=== PATIENT | male | born 1945 | race Caucasian/White ===

== ENCOUNTER → 2016-06-08 | Outpatient (CLI) | payer MEDICARE, MEDICAID ==
[~2016-06-08] MED LIST: AMLO5TAB2 PO; BENZ100C4 PO; CHOL400C PO; CRAN400C PO; FINA5TAB4 PO; FOLI1TAB7 PO; HYDR-3138 PO; HYDR12.53 PO; HYDR25TA6 PO; MECL12.52 PO; METF500T9 PO; OMEP40CA6 PO; QUIN20TA7 PO; QUIN40TA7 PO; SIMV40TA3 PO; SIMV5TAB5 PO; SITA100T PO; SUCR1TAB PO; TAMS0.4C2 PO
== END | disposition home or self-care (01) ==
LOC: CFH 07:53
PROVIDERS: ATTEND Nurse Practitioner Family
DX: G31.9 Degenerative disease of nervous system, unspecified (principal); I99.8 Other disorder of circulatory system; Q30.1 Agenesis and underdevelopment of nose
CPT/HCPCS: 70450

== ENCOUNTER → 2016-06-09 | Outpatient (CLI) | payer MEDICARE, MEDICAID | END | disposition home or self-care (01) | LOC: RAD 07:01 | PROVIDERS: ATTEND Nurse Practitioner Family | DX: N28.1 Cyst of kidney, acquired (principal); K83.8 Other specified diseases of biliary tract | CPT/HCPCS: 76700 ==

== ENCOUNTER 2016-06-14 06:36 | Emergency (ER) | payer MEDICARE, MEDICAID ==
[~2016-06-14] VITALS: Ht 167.6 cm; Wt 75.8 kg
[~2016-06-14 06:36] MED LIST changes: -BENZ100C4 PO; -FINA5TAB4 PO; -HYDR-3138 PO; -HYDR25TA6 PO; -MECL12.52 PO; -METF500T9 PO; -OMEP40CA6 PO; -QUIN40TA7 PO; -SIMV40TA3 PO; -SITA100T PO; -SUCR1TAB PO
[2016-06-14] MEDS ORDERED: SODIUM CHLORIDE 0.9% 1,000 ML IV ONE (07:02)
[2016-06-14] MEDS ORDERED: OMEP40CA6 PO (07:07)
[2016-06-14] MEDS ORDERED: HYDR-3138 PO (07:07)
[2016-06-14] MEDS ORDERED: FINA5TAB4 PO (07:07)
[2016-06-14] MEDS ORDERED: SIMV40TA3 PO (07:07)
[2016-06-14] MEDS ORDERED: SITA100T PO (07:07)
[2016-06-14] MEDS ORDERED: METF500T9 PO (07:07)
[2016-06-14] MEDS ORDERED: QUIN40TA7 PO (07:07)
[2016-06-14] MEDS ORDERED: HYDR25TA6 PO (07:07)
[2016-06-14] MEDS ORDERED: MECL12.52 PO (07:09)
[2016-06-14] MEDS ORDERED: BENZ100C4 PO (07:09)
[2016-06-14] MEDS ORDERED: SUCR1TAB PO (07:09)
[2016-06-14] MEDS ORDERED: ASPIRIN 81 MG TABLET CHEW ONE (07:13)
[2016-06-14] MEDS ORDERED: ASPIRIN 81 MG TABLET CHEW PO ONE (07:30)
[2016-06-14 07:33] LABS: HEMOGLOBIN 15.6 g/dL (13.7-18.0)
[2016-06-14 07:47] LABS: BLOOD UREA NITROGEN 20 mg/dL (7-18)
[2016-06-14 07:53] LABS: IS PT STATUS REG ER OR PRE ER? YES
[2016-06-14 09:26] VITALS: BP 154/88
== END 2016-06-14 09:29 | disposition home or self-care (01) ==
LOC: ED 08:42
DX: R07.89 Other chest pain (principal); I10 Essential (primary) hypertension; E11.9 Type 2 diabetes mellitus without complications
CPT/HCPCS: 36415; 71010; 80048; 82040; 84484; 85025; 93005

== ENCOUNTER → 2016-09-06 | Outpatient (CLI) | payer MEDICARE, MEDICAID ==
[~2016-09-06] MED LIST changes: +BENZ100C4 PO; +FINA5TAB4 PO; +HYDR-3138 PO; +HYDR25TA6 PO; +MECL12.52 PO; +METF500T9 PO; +OMEP40CA6 PO; +QUIN40TA7 PO; +REGADENOSON 0.4 MG/5 ML SYRINGE ONE; +SIMV40TA3 PO; +SITA100T PO; +SUCR1TAB PO
== END | disposition home or self-care (01) ==
LOC: CFH 07:22
PROVIDERS: ATTEND Internal Medicine Cardiovascular Disease
DX: I08.0 Rheumatic disorders of both mitral and aortic valves (principal); I10 Essential (primary) hypertension; E11.9 Type 2 diabetes mellitus without complications
CPT/HCPCS: 78452; 93017; 93306; A9502; J2785